=== PATIENT | male | born 1940 | race Caucasian/White ===

== ENCOUNTER → 2016-12-16 | Outpatient (CLI) | payer MEDICARE | END | disposition home or self-care (01) | LOC: PCVCCLINIC 10:13 | PROVIDERS: ATTEND Internal Medicine Cardiovascular Disease | DX: E78.00 Pure hypercholesterolemia, unspecified (principal); I10 Essential (primary) hypertension; I25.5 Ischemic cardiomyopathy; I48.0 Paroxysmal atrial fibrillation; I25.10 Atherosclerotic heart disease of native coronary artery without angina pectoris; I71.4 Abdominal aortic aneurysm, without rupture | CPT/HCPCS: 80061; 93005; G0463 ==

== ENCOUNTER → 2016-12-24 | Outpatient (CLI) | payer MEDICARE ==
[~2016-12-24] MED LIST: REGADENOSON 0.4 MG/5 ML DISP.SYRIN. IV ONE
== END | disposition home or self-care (01) ==
LOC: PCVCIMAG 07:40
PROVIDERS: ATTEND Internal Medicine Cardiovascular Disease
DX: I71.4 Abdominal aortic aneurysm, without rupture (principal); I25.10 Atherosclerotic heart disease of native coronary artery without angina pectoris; I25.2 Old myocardial infarction; I48.91 Unspecified atrial fibrillation
CPT/HCPCS: 78452; 93017; 93978; A9500; J2785

== ENCOUNTER → 2018-01-15 | Outpatient (CLI) | payer MEDICARE | END | disposition home or self-care (01) | LOC: PCVCCLINIC 11:35 | DX: I25.10 Atherosclerotic heart disease of native coronary artery without angina pectoris (principal); I48.0 Paroxysmal atrial fibrillation; I71.4 Abdominal aortic aneurysm, without rupture; I25.5 Ischemic cardiomyopathy; I10 Essential (primary) hypertension; E78.00 Pure hypercholesterolemia, unspecified; S09.90XA Unspecified injury of head, initial encounter; R94.31 Abnormal electrocardiogram [ECG] [EKG]; Z87.891 Personal history of nicotine dependence; Z79.899 Other long term (current) drug therapy; Z79.82 Long term (current) use of aspirin; X58.XXXA Exposure to other specified factors, initial encounter; Y93.89 Activity, other specified; Y92.89 Other specified places as the place of occurrence of the external cause; Y99.8 Other external cause status | CPT/HCPCS: 80061; 93005; G0463 ==

== ENCOUNTER → 2018-11-10 | Outpatient (CLI) | payer MEDICARE ==
--- NOTE | 2018-11-10 11:28 | PCVCIMAG ---
APPROVED REPORT Study performed: 11/10/2018 08:07:11 EXAM: Comprehensive 2D, Doppler, and color-flow Echocardiogram Patient Location: Echo lab Status: routine BSA: 2.22 HR: 50 bpmBP: 140/90 mmHg Rhythm: Bradycardia Other Information Study Quality: Adequate Risk Factors: Cardiac Risk Factors: HTN, Hyperlipidemia Indications Atrial Fibrillation CAD Ischemic cardiomyopathy, Pre op surgery clearance 2D Dimensions IVSd: 14.32 (7-11mm)LVOT Diam: 22.02 (18-24mm) LVDd: 38.43 mm PWd: 11.90 (7-11mm)Ascending Ao: 50.33 (22-36mm) LVDs: 27.62 (25-40mm) Left Atrium: 46.00 (27-40mm) Aortic Root: 30.66 mm LV Single Plane 4CH: 65.22 % LV Single Plane 2CH: 59.59 % Biplane EF: 63.1 % Volumes Left Atrial Volume (Systole) Single Plane 4CH: 78.68 mLSingle Plane 2CH: 55.61 mL LA ESV Index: 32.00 mL/m2 Aortic Valve AoV Peak Trey.: 1.96 m/s AO Peak Gr.: 15.36 mmHgLVOT Max P.23 mmHg AO Mean Gr.: 8.05 mmHgLVOT Mean P.40 mmHg AO V2 Mean: 1.36 m/sLVOT Max V: 1.34 m/s AO V2 VTI: 46.64 cmLVOT Mean V: 1.00 m/s KARLA (VTI): 2.92 [id number] V1 VTI: 35.75 cm KARLA Vmax: 2.61 cm2 AI Vmax: 4.58 m/sSV (LVOT): 136.05 mL AI Dawes: 1.52 m/s2 AI PHT: 876.85 ms Mitral Valve E/A Ratio: 1.0 MV Decel. Time: 445.07 ms MV E Max Trey.: 1.20 m/s MV A Trey.: 1.22 m/s IVRT: 176.47 ms TDI E/Lateral E': 17.14E/Medial E': 24.00 Medial E' Trey.: 0.05 m/s Lateral E' Trey.: 0.07 m/s Pulmonary Valve PV Peak Gr.: 4.15 mmHg Pulmonary Vein P Vein S: 0.50 m/sP Vein A: 0.24 m/s P Vein D: 0.43 m/sP Vein A Dur.: 76.1 msec P Vein S/D Ratio: 1.16 Tricuspid Valve TR Peak Trey.: 2.65 m/s TR Peak Gr.: 28.08 mmHg Left Ventricle The left ventricle is normal size. There is normal LV segmental wall motion. Mild concentric left ventricular hypertrophy. Left ventricular systolic function is normal. The left ventricular ejection fraction is within the normal range. LVEF is 55%. The left ventricular diastolic function is normal. Right Ventricle The right ventricle is normal size. The right ventricular systolic function is normal. Atria The left atrium size is normal. The right atrium size is normal. Aortic Valve The aortic valve is normal in structure. Mild aortic regurgitation. There is no aortic valvular stenosis. Mitral Valve Mild mitral annular calcification. Mild mitral regurgitation. No evidence of mitral valve stenosis. Tricuspid Valve The tricuspid valve is normal in structure. Trace tricuspid regurgitation. Pulmonary artery pressure is 35mmHg. Pulmonic Valve The pulmonary valve is normal in structure. There is no pulmonic valvular regurgitation. Great Vessels The aortic root is normal in size. The ascending aorta is dilated measuring 5.0 cm. IVC is normal in size and collapses >50% with inspiration. Pericardium There is no pericardial effusion. <Conclusion> The left ventricle is normal size. LVEF is 55%. The left ventricular diastolic function is normal. The right ventricle is normal size. The left atrium size is normal. The aortic valve is normal in structure. Mild aortic regurgitation. Mild mitral regurgitation. Trace tricuspid regurgitation. Pulmonary artery pressure is 35mmHg. The ascending aorta is dilated measuring 5.0 cm. There is no pericardial effusion.
--- NOTE | 2018-11-10 12:33 | PCVCIMAG ---
APPROVED REPORT Imaging Protocol: Rest Tc-99m/Stress Tc-99m 1 day Study performed: 11/10/2018 08:23:26 Indication: CAD, PAF, ICM Patient Location: Out-Patient Stress Nurse: Cecelia Bazzi RN, GRISEL Ho Tech:Didier LarsenDAVID Ht: 5 ft 11 in Wt: 228 lbs BSA: 2.23 m2 HR: 51 bpm BP: 154/80 mmHg BMI: 31.7 Rhythm: Sinus Bradycardia, First degree AV Block Medical History Medical History: Age, Hyperlipidemia, HTN, PVD, Former Smoker Medications: Amlodipine, ASA, Flexeril, Keppra, Synthroid, Protonix, Sotalol, Crestor Allergies: No known drug allergies Previous Cardiac Procedures: 2010 Emergent PCI - LAD Pretest Chest Pain Characteristics: No chest pain Exercise History: Sedentary Physical Disabilities: Activity intolerance Meds Held (24 hrs): Took all meds Resting Data Rest SPECT myocardial perfusion imaging was performed in supine position 45 minutes following the intravenous injection of 11.3 mCi of Tc-99m Sestamibi. Time of rest injection: 0915 Date: 11/10/2018 Administration Route: IV Administration Site: Right AC Pharmacologic Stress Pharmacologic stress test was performed by injecting Regadenoson 0.4 mg IV push over 10-15 seconds immediately followed by the intravenous injection of 31.3 mCi of Tc-99m Sestamibi. Time of stress injection: 1030 Date: 11/10/2018 Administration Route: IV Administration Site: Right AC Gated Stress SPECT was performed 45 minutes after stress injection. The images were gated to evaluate regional wall motion and calculate left ventricular ejection fraction. Stress Test Details Stress Test: Pharmacologic stress testing performed using 0.4 mg of regadenoson per 5 mL given IV over 10 seconds. Reason for pharmacologic stress test: Activity Intolerance. HRMax Heart Rate (APMHR): 142 bpm Resting HR: 51 bpmTarget HR (85% APMHR): 120 bpm Max HR Achieved: 60 bpm % of APMHR: 42 Recovery HR: 55 bpm BP Resting BP: 154/80 mmHg Max BP: 136/73 mmHg Recovery BP: 142/74 mmHg ECG Resting ECG: Sinus Bradycardia, 1st degree AV block Stress ECG: Sinus Rhythm, 1st degree AV block Arrhythmia: PAC's Recovery ECG: Sinus Bradycardia, 1st degree AV block Clinical Reason for Termination: Completed protocol Stress Symptoms: Overall Anxiety Exercise duration: min 55 sec Symptoms resolved with caffeine. Stress ECG Conclusion ECG: Non-ischemic Study Quality Study: Good Study Data Post stress, the left ventricular ejection was 70%.. SSS: 8 SRS: 7 SDS: 2 TID = 1.13. Perfusion No evidence of stress induced ischemia. 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 Nuclear Conclusion No evidence of stress induced ischemia. 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 No change since prior study dated December 2016. Interpreted by: Romaine Jameson MD Electronically Approved: 11/10/2018 12:10:32 <Conclusion> ECG: Non-ischemic
== END | disposition home or self-care (01) ==
LOC: PCVCIMAG 07:36
PROVIDERS: ATTEND Internal Medicine Cardiovascular Disease
DX: I08.0 Rheumatic disorders of both mitral and aortic valves (principal); I25.10 Atherosclerotic heart disease of native coronary artery without angina pectoris; I48.91 Unspecified atrial fibrillation; I10 Essential (primary) hypertension; E78.5 Hyperlipidemia, unspecified; I25.5 Ischemic cardiomyopathy; I71.4 Abdominal aortic aneurysm, without rupture; I71.2 Thoracic aortic aneurysm, without rupture; E78.00 Pure hypercholesterolemia, unspecified; Z87.891 Personal history of nicotine dependence
CPT/HCPCS: 36415; 78452; 80061; 93017; 93306; A9500; G0463; J2785

== ENCOUNTER → 2018-12-16 | Outpatient (CLI) | payer MEDICARE | END | disposition home or self-care (01) | LOC: PCVCCLINIC 13:57 | PROVIDERS: ATTEND Internal Medicine Cardiovascular Disease | DX: I25.10 Atherosclerotic heart disease of native coronary artery without angina pectoris (principal); R94.31 Abnormal electrocardiogram [ECG] [EKG]; R00.1 Bradycardia, unspecified; I48.0 Paroxysmal atrial fibrillation; I71.4 Abdominal aortic aneurysm, without rupture; I10 Essential (primary) hypertension; I25.5 Ischemic cardiomyopathy; D50.0 Iron deficiency anemia secondary to blood loss (chronic); E78.00 Pure hypercholesterolemia, unspecified; R53.83 Other fatigue; S06.5X0S Traumatic subdural hemorrhage without loss of consciousness, sequela; Z87.891 Personal history of nicotine dependence; Z79.899 Other long term (current) drug therapy; X58.XXXS Exposure to other specified factors, sequela | CPT/HCPCS: 93005; G0463 ==